=== PATIENT | female | born 1950 | race Caucasian/White ===

== ENCOUNTER 2022-06-24 10:45 | Outpatient (CLI) | payer MEDICARE, BC, SELFPAY | END 2022-06-24 10:46 | disposition home or self-care (01) | LOC: NFLDREF 10:46 | PROVIDERS: PCP Family Medicine; Visit Provider Registered Nurse | DX: N89.8 Other specified noninflammatory disorders of vagina (principal); N39.0 Urinary tract infection, site not specified | CPT/HCPCS: 87086 ==